=== PATIENT | male | born 1975 | race Caucasian/White ===

== ENCOUNTER 2022-04-30 20:49 | Emergency (ER) | payer OTHER ==
[~2022-04-30] VITALS: Ht 177.8 cm; Wt 117.9 kg
--- NOTE | 2022-04-30 21:05 | NUR ---
Patient walked into ER with steady gait. NAD noted. A/Ox4.
--- NOTE | 2022-04-30 21:27 | NUR ---
Dr. Del Cid at bedside. MSE in progress.
[2022-04-30] MEDS ORDERED: PRED20TA PO (22:01)
[2022-04-30] MEDS ORDERED: HYDR-500 PO (22:01)
[2022-04-30 22:21] VITALS: BP 139/88
--- NOTE | 2022-04-30 22:21 | NUR ---
Patient discharged to home in stable condition. A/Ox4. NAD noted. Ambulatory with steady gait. Written and verbal after care instructions given. Patient verbalizes understanding of instructions. Stressed follow up or return to ER for worsening s/s. All belongings with patient.
== END 2022-04-30 22:23 | disposition home or self-care (01) ==
LOC: ER 20:55
DX: L50.9 Urticaria, unspecified (principal); K21.9 Gastro-esophageal reflux disease without esophagitis; E66.9 Obesity, unspecified; Z68.37 Body mass index [BMI] 37.0-37.9, adult; R03.0 Elevated blood-pressure reading, without diagnosis of hypertension
CPT/HCPCS: A4663